=== PATIENT | male | born 1985 | race Caucasian/White ===

== ENCOUNTER → 2020-11-06 | Outpatient (CLI) | payer BC, OTHER ==
[~2020-11-06] MED LIST: MULTI VITAMIN1 EACH PO; TRAZODONE HCL50 MG PO; VITAMIN C500 M2 PO
== END ==
LOC: LAB 11:50
PROVIDERS: ATTEND Orthopaedic Surgery Hand Surgery
DX: Z01.812 Encounter for preprocedural laboratory examination (principal); Z20.822 Contact with and (suspected) exposure to COVID-19

== ENCOUNTER → 2020-11-08 | Day surgery (SDC) | payer BC, OTHER ==
[~2020-11-08] VITALS: Ht 175.3 cm; Wt 79.4 kg
[2020-11-08 10:56] VITALS: BP 129/91
[2020-11-08 14:13] VITALS: BP 129/91
--- NOTE | 2020-11-10 14:30 | O ---
[facility] [place] [address] OPERATIVE REPORT Name: STEPHY WEBER Room #: [facility] [place] M.R.#: [id number] Admission: 11/08/20 Attend Phys: Bouchra Chavez, Discharge: Date of : 89 Report #: [id number] THIS REPORT FOR: cc: Froy Quiroz,Froy Chavez,Bouchra Santiago MD ~ DATE OF SERVICE: 11/08/2020 PREOPERATIVE DIAGNOSIS: Painful left distal radius plate and screws deep. POSTOPERATIVE DIAGNOSIS: Painful left distal radius plate and screws deep. PROCEDURE PERFORMED: Left deep plate and screw removal, distal radius. SURGEON: Bouchra Chavez MD ANESTHESIA: General mask anesthesia. ESTIMATED BLOOD LOSS: Minimal. TOURNIQUET TIME: Approximately 75 minutes. COMPLICATIONS: No surgical complications. There was a delay in the surgical procedure due to an incomplete hardware removal set. CONDITION: Stable. DISPOSITION: Recovery room. INDICATIONS: The patient is a 35-year-old male with the above-mentioned diagnosis. He elects for operative treatment. Risks, benefits, alternatives, and complications were discussed including, but not limited to, infection, damage to vessels or nerves, incomplete relief or worsening of any symptoms, and difficulty getting the hardware out. Informed consent was obtained. The correct extremity was identified and labeled by myself after verbal confirmation of the patient as well as visual confirmation and signed informed consent. DESCRIPTION OF PROCEDURE: The patient was brought back to the operating room and placed on the operating table in the supine position. He received preoperative antibiotics. Tourniquet was placed over padding on the patient's left lower extremity. Left lower extremity was sterilely prepped and draped in usual fashion. Final timeout was taken to verify correct patient, operative procedure, operative site, all concurred. The arm was elevated, exsanguinated and tourniquet inflated. Next, the same volar approach was done to the distal radius as previously over the FCR tendon. Dissection was carried down through [address] [address] OPERATIVE REPORT Name: STEPHY WEBER Room #: [facility] [place] M.R.#: [id number] Admission: 11/08/20 Attend Phys: Bouchra Chavez, Discharge: Date of : 89 Report #: [id number] subcutaneous tissue with tenotomy scissors. The tendon sheath was identified. The subsheath was incised and the volar contents were retracted ulnarly. The plate was palpable. Periosteum was elevated from the plate. The plate was easily identified. The screws were all identified. They were square screws except the most proximal screw appeared to be stripped. There were 2 square screwdrivers in the Suzie set. Neither one the correct size. One was too small and one was too large. The rep was then called and steps were taken to hopefully bring in the correct screwdriver. The wound was then covered with a moist sponge and the tourniquet was deflated. Once the appropriate instrumentation was brought in appropriately sterilized, arm was elevated, exsanguinated, and the tourniquet inflated. This screwdriver fit perfectly and four of the five screws were removed without difficulty. The most proximal screw was stripped. Multiple attempts were made to remove it using the square screwdriver as well as some other screwdrivers in the set and this was unable to be accomplished. The plate was then elevated off the bone. Next, due to the prominence of the proximal-most screw, an attempt was made to back it out from dorsally. So, an incision was made over the palpable screw. Dissection was carried down through the subcutaneous tissues with tenotomy scissors. The screw was easily identified and it was attempted to be backed out; however, this was unsuccessful. The plate was then moved distally, as the proximal-most screw was in the gliding hole. This did not improve the ability to remove the screw. Next, an osteotome was then placed retrograde along the radius along the plate and the screw head eventually was sheared off. The screw head and plate were then removed without difficulty. The screw was backed out from the dorsal aspect and the fluoroscopy was brought in, which showed absence of the hardware. The wounds were all thoroughly irrigated. The skin was closed with 4-0 nylon suture. The subcutaneous tissues were infiltrated with approximately total of 5 mL of 0.25% Marcaine. He was placed in a bulky dressing and a volar slab splint. All fingers were pink and brisk capillary refill at the conclusion of case after deflation of tourniquet. All sponge and needle counts were correct. The patient was transferred to postoperative recovery room in stable condition. <ELECTRONICALLY SIGNED> By: Bouchra Chavez MD 11/10/20 1430 [id number] Bouchra Chavez MD /nt
== END | disposition home or self-care (01) ==
LOC: OR 08:52
PROVIDERS: ATTEND Orthopaedic Surgery Hand Surgery
DX: T84.84XA Pain due to internal orthopedic prosthetic devices, implants and grafts, initial encounter (principal); M25.532 Pain in left wrist; M77.8 Other enthesopathies, not elsewhere classified; Z98.890 Other specified postprocedural states; Z79.899 Other long term (current) drug therapy; Z20.822 Contact with and (suspected) exposure to COVID-19; Z88.1 Allergy status to other antibiotic agents; Z88.8 Allergy status to other drugs, medicaments and biological substances; Y83.8 Other surgical procedures as the cause of abnormal reaction of the patient, or of later complication, without mention of misadventure at the time of the procedure
CPT/HCPCS: 50010; 50101; 50386; 56526; 57006; 57091; 57178; 62110; 62900; 70005

== ENCOUNTER → 2021-04-10 | Outpatient (CLI) | payer BC, OTHER | LOC: CAT 14:25 | PROVIDERS: ATTEND Nurse Practitioner | DX: R10.13 Epigastric pain (principal) ==